=== PATIENT | female | born 1945 | race Two or more races ===

== ENCOUNTER 2018-10-08 23:06 | Emergency (ER) | payer MEDICARE, MEDICAID ==
[~2018-10-08] VITALS: Ht 149.9 cm; Wt 59.0 kg
--- NOTE | 2018-10-08 23:10 | NUR ---
pt is a/o x3 overall appearances fair has red little bumps all over her lower extremities pt scratching stated she been have this precaution maintained
[2018-10-08] MEDS ORDERED: ALPR0.25 PO (23:15)
[2018-10-08] MEDS ORDERED: DONE5TAB34 PO (23:15)
[2018-10-08] MEDS ORDERED: QUET25TA PO (23:15)
[2018-10-08] MEDS ORDERED: CLOP75TA33 PO (23:15)
[2018-10-08] MEDS ORDERED: FAMO-132 PO (23:15)
[2018-10-08] MEDS ORDERED: AMLO5TAB9 PO (23:15)
--- NOTE | 2018-10-08 23:18 | NUR ---
pt has been discharge awaitng for ambulance to take pt back to her facility discharge teaching given to pt and prescription teaching given also pt voiced her understanding
--- NOTE | 2018-10-08 23:19 | NUR ---
Called Ricky, ETA 1 hr Trip#[phone]
--- NOTE | 2018-10-09 00:56 | NUR ---
pt is being discharge back to facility by ambulance discharge teaching and prescription teaching given pt condition remains stable
[2018-10-09 00:59] VITALS: BP 132/70
== END 2018-10-09 01:00 | disposition home or self-care (01) ==
LOC: ER 23:10
DX: B86 Scabies (principal); Z79.01 Long term (current) use of anticoagulants; Z79.899 Other long term (current) drug therapy
CPT/HCPCS: A4663

== ENCOUNTER 2018-11-09 18:32 | Inpatient (IN) | payer MEDICARE, OTHER ==
[~2018-11-09] VITALS: Ht 157.5 cm; Wt 54.2 kg
[~2018-11-09 18:32] MED LIST: ALPR0.25 PO; AMLO5TAB9 PO; CLOP75TA33 PO; DONE5TAB34 PO; FAMO-132 PO; QUET25TA PO
[2018-11-09 19:20] LABS: BASOPHILS # (AUTO) 0.1 K/uL (0.0-8.0); BASOPHILS % (AUTO) 1.2 % (0.0-2.0); EOSINOPHILS # (AUTO) 0.1 K/uL (0.0-0.7); EOSINOPHILS % (AUTO) 2.9 % (0.0-7.0); HEMATOCRIT 33.7 % (31.2-41.9); HEMOGLOBIN 11.3 g/dL (10.9-14.3); LYMPHOCYTES # (AUTO) 1.9 K/uL (20.0-40.0); LYMPHOCYTES % (AUTO) 40.4 % (20.5-51.5); MEAN CORPUSCULAR HGB CONC 34 g/dL (32.3-35.6); MEAN CORPUSCULAR VOLUME 80.5 fL (75.5-95.3); MONOCYTES # (AUTO) 0.4 K/uL (2.0-10.0); NEUTROPHILS # (AUTO) 2.2 K/uL (1.8-8.9); NEUTROPHILS % (AUTO) 47.5 % (38.5-71.5); PLATELET COUNT (AUTO) 179 K/uL (179-408); RED BLOOD CELL COUNT(AUTO) 4.19 MIL/uL (3.63-4.92); WHITE BLOOD COUNT (AUTO) 4.6 K/uL (3.8-11.8)
[2018-11-09 19:29] LABS: CARBON DIOXIDE 28 mmol/L (21-32); CHLORIDE 109 mmol/L (98-107); CREATININE 0.9 mg/dL (0.6-1.3); GLUCOSE 117 mg/dL (74-106); POTASSIUM 3.4 mmol/L (3.5-5.1); UREA NITROGEN, BLOOD 17 mg/dL (7-18)
[2018-11-09 19:34] LABS: *BILIRUBIN,URIN NEGATIVE (NEGATIVE); *BLOOD, URINE NEGATIVE (NEGATIVE); *COLOR,URINE YELLOW (YELLOW); *KETONES,URINE NEGATIVE (NEGATIVE); *UROBILINOGEN,URINE 0.2 E.U./dl (NORMAL); LEUKOCYTE ESTERASE ,URINE 1+ (NEGATIVE); NITRITE, URINE NEGATIVE (NEGATIVE); UGLUCOSE NEGATIVE (NEGATIVE)
[2018-11-09 19:35] LABS: ALANINE AMINOTRANSFERASE 38 U/L (14-59); ALKALINE PHOSPHATASE 87 U/L (50-136); ASPARTATE AMINOTRANSFERASE 35 U/L (15-37); BILIRUBIN,DIRECT 0.1 mg/dL (0.0-0.2); BILIRUBIN,TOTAL 0.2 mg/dL (0.2-1.0); TOTAL PROTEIN, SERUM 6.7 g/dL (6.4-8.2)
[2018-11-09 19:41] LABS: *CLARITY,URINE SLIGHTLY HAZY (CLEAR)
[2018-11-09 19:43] LABS: RBC,URINE 0-3 /HPF (0-3)
[2018-11-09 19:44] LABS: MUCUS,URINE MODERATE /LPF (0-FEW); SQUAMOUS EPITHELIAL CELL,UR FEW /HPF (NONE SEEN)
[2018-11-09] MEDS ORDERED: IV NORMAL SALINE 1000 ML BAG IV ONE (19:45)
[2018-11-09] MEDS ORDERED: ACETAMINOPHEN 325 MG TABLET PO PRN (20:45)
[2018-11-09] MEDS ORDERED: CEFTRIAXONE 2 G in IV DEXTROSE 5% 100 ML IV ONE (20:45)
[2018-11-09] MEDS ORDERED: MAGNESIUM HYDROXIDE 30 ML LIQUID UDC PO PRN (20:45)
[2018-11-09] MEDS ORDERED: ONDANSETRON 4 MG/2 ML VIAL IV PRN (20:45)
[2018-11-09] MEDS ORDERED: HYDROCODONE/APAP 5-325MG TABLET PO PRN (20:45)
[2018-11-09] MEDS ORDERED: IV NS 1000 ML 1,000 ML IV PRN (20:45)
[2018-11-09] MEDS ORDERED: CEFTRIAXONE 1 G VIAL ONE (20:47)
[2018-11-09] MEDS ORDERED: HALOPERIDOL LACTATE 5 MG/1 ML VIAL ONE (21:14)
[2018-11-09] MEDS ORDERED: HALOPERIDOL LACTATE 5 MG/1 ML VIAL IM ONE (21:15)
[2018-11-09] MEDS ORDERED: LORAZEPAM 2 MG/1 ML VIAL IM ONE (21:30)
[2018-11-09] MEDS ORDERED: LORAZEPAM 2 MG/1 ML VIAL ONE (21:31)
[2018-11-09 22:05] VITALS: BP 131/62
[2018-11-10 06:35] VITALS: BP 149/62
[2018-11-10 10:34] VITALS: BP 131/64
[2018-11-10 16:33] VITALS: BP 139/73
[2018-11-10] MEDS: QUETIAPINE FUMARATE 25 MG TABLET PO SCH ×2 (16:47→16:52)
[2018-11-10] MEDS: FAMOTIDINE 20 MG TABLET PO SCH ×2 (16:47→16:51)
[2018-11-10] MEDS: DONEPEZIL 5 MG TABLET PO SCH (20:00)
[2018-11-10 20:19] VITALS: BP 159/82
[2018-11-10] MEDS ORDERED: CEFTRIAXONE 1 G in IV DEXTROSE 5% 50 ML IV SCH (21:00)
[2018-11-10] MEDS: OLANZAPINE 10 MG VIAL IM ONE ×2 (21:45→22:02)
[2018-11-11] MEDS: FAMOTIDINE 20 MG TABLET PO SCH ×2 (08:54→16:34)
[2018-11-11 08:58] VITALS: BP 155/78
[2018-11-11] MEDS ORDERED: AMLODIPINE 5 MG TABLET PO SCH (09:00)
[2018-11-11] MEDS ORDERED: CLOPIDOGREL 75 MG TABLET PO SCH (09:00)
[2018-11-11] MEDS: QUETIAPINE FUMARATE 25 MG TABLET PO SCH ×2 (09:01→16:34)
[2018-11-11] MEDS ORDERED: MEMANTINE HCL 5 MG TABLET PO SCH (11:45)
[2018-11-11 12:00] VITALS: BP 136/73
[2018-11-11 12:27] LABS: BASOPHILS % (AUTO) 0.9 % (0.0-2.0); EOSINOPHILS # (AUTO) 0.1 K/uL (0.0-0.7); MONOCYTES # (AUTO) 0.3 K/uL (2.0-10.0); WHITE BLOOD COUNT (AUTO) 4.4 K/uL (3.8-11.8)
[2018-11-11 12:31] LABS: CARBON DIOXIDE 27 mmol/L (21-32); CHLORIDE 103 mmol/L (98-107); CREATININE 0.8 mg/dL (0.6-1.3); GLUCOSE 115 mg/dL (74-106); MAGNESIUM 2.2 mg/dL (1.8-2.4); PHOSPHOROUS 3.9 mg/dL (2.5-4.9); UREA NITROGEN, BLOOD 9 mg/dL (7-18)
[2018-11-11 12:36] LABS: EOSINOPHILS % (AUTO) 1.5 % (0.0-7.0); LYMPHOCYTES # (AUTO) 1.6 K/uL (20.0-40.0); LYMPHOCYTES % (AUTO) 36.2 % (20.5-51.5); MEAN CORPUSCULAR HEMOGLOBIN 26.3 uug (24.7-32.8); MEAN CORPUSCULAR HGB CONC 33 g/dL (32.3-35.6); MEAN CORPUSCULAR VOLUME 80.4 fL (75.5-95.3); MONOCYTES % (AUTO) 7.2 % (0.0-11.0); NEUTROPHILS # (AUTO) 2.4 K/uL (1.8-8.9); NEUTROPHILS % (AUTO) 54.2 % (38.5-71.5); PLATELET COUNT (AUTO) 208 K/uL (179-408); RED BLOOD CELL COUNT(AUTO) 4.96 MIL/uL (3.63-4.92)
[2018-11-11 12:37] LABS: HEMATOCRIT 39.9 % (31.2-41.9); HEMOGLOBIN 13.1 g/dL (10.9-14.3)
[2018-11-11 16:00] VITALS: BP 149/92
[2018-11-11] MEDS ORDERED: HALOPERIDOL LACTATE 5 MG/1 ML VIAL IM PRN (17:30)
[2018-11-11] MEDS: DONEPEZIL 5 MG TABLET PO SCH (18:59)
[2018-11-11] MEDS ORDERED: risperiDONE 0.5 MG TABLET PO SCH (21:00)
[2018-11-12] MEDS ORDERED: risperiDONE 0.5 MG TABLET PO SCH (14:00)
[2018-11-12] MEDS ORDERED: DIVALPROEX 125 MG TABLET.DR PO SCH (21:00)
== END 2018-11-11 20:30 | DRG 689 ==
LOC: ER 18:32 → MEDSURG3 20:58
PROVIDERS: ADMIT Nurse Practitioner Acute Care; ATTEND Nurse Practitioner Acute Care
DX: N39.0 Urinary tract infection, site not specified (principal); G93.41 Metabolic encephalopathy; E87.0 Hyperosmolality and hypernatremia; G30.9 Alzheimer's disease, unspecified; F02.80 Dementia in other diseases classified elsewhere, unspecified severity, without behavioral disturbance, psychotic disturbance, mood disturbance, and anxiety; R62.7 Adult failure to thrive; Z87.442 Personal history of urinary calculi; E87.6 Hypokalemia; F29 Unspecified psychosis not due to a substance or known physiological condition; R40.2362 Coma scale, best motor response, obeys commands, at arrival to emergency department; R40.2142 Coma scale, eyes open, spontaneous, at arrival to emergency department; R40.2242 Coma scale, best verbal response, confused conversation, at arrival to emergency department; G20 Parkinson's disease; Z79.02 Long term (current) use of antithrombotics/antiplatelets; Z79.899 Other long term (current) drug therapy; R21 Rash and other nonspecific skin eruption
CPT/HCPCS: 36415; 70030-TC; 71045; 83735; 84100; 85025; 87086; 93005; A4663; C1758; G0378; J0696; J1630; J2060; J2358; J7030; J7040; J7060

== ENCOUNTER 2018-11-11 20:50 | Inpatient (IN) | payer MEDICARE, OTHER ==
[~2018-11-11] VITALS: Ht 149.9 cm; Wt 56.7 kg
[~2018-11-11 20:50] MED LIST changes: -ALPR0.25 PO
[2018-11-11] MEDS ORDERED: MAGNESIUM HYDROXIDE 30 ML LIQUID UDC PO PRN (21:45)
[2018-11-11] MEDS ORDERED: MAG HYDROX/AL HYDROX/SIMETH 30 ML LIQUID UDC PO PRN (21:45)
[2018-11-11 22:08] VITALS: BP 150/84
[2018-11-11] MEDS: TEMAZEPAM 7.5 MG CAPSULE PO PRN (22:35)
[2018-11-11] MEDS: MEMANTINE HCL 5 MG TABLET PO SCH (23:00)
[2018-11-11] MEDS ORDERED: DONEPEZIL 5 MG TABLET PO SCH (23:00)
[2018-11-12 07:30] VITALS: BP 147/78
[2018-11-12] MEDS: MEMANTINE HCL 5 MG TABLET PO SCH ×2 (08:33→20:01)
[2018-11-12] MEDS: AMLODIPINE 5 MG TABLET PO SCH (08:33)
[2018-11-12] MEDS: CLOPIDOGREL 75 MG TABLET PO SCH (08:34)
[2018-11-12] MEDS: FAMOTIDINE 20 MG TABLET PO SCH ×2 (08:34→17:31)
[2018-11-12] MEDS: risperiDONE 0.5 MG TABLET PO SCH ×2 (16:05→20:01)
[2018-11-12 16:21] VITALS: BP 128/65
[2018-11-12] MEDS: BENZTROPINE MESYLATE 0.5 MG TABLET PO SCH (17:31)
[2018-11-12 19:49] VITALS: BP 145/64
[2018-11-12] MEDS ORDERED: risperiDONE 0.5 MG TABLET PO SCH (21:00)
[2018-11-12] MEDS ORDERED: DIVALPROEX 125 MG TABLET.DR PO SCH (21:00)
[2018-11-13 07:30] VITALS: BP 104/41
[2018-11-13] MEDS: CLOPIDOGREL 75 MG TABLET PO SCH (08:55)
[2018-11-13] MEDS: risperiDONE 0.5 MG TABLET PO SCH ×2 (08:55→20:12)
[2018-11-13] MEDS: MEMANTINE HCL 5 MG TABLET PO SCH ×2 (08:55→20:12)
[2018-11-13] MEDS: FAMOTIDINE 20 MG TABLET PO SCH ×2 (08:55→17:15)
[2018-11-13] MEDS: AMLODIPINE 5 MG TABLET PO SCH (08:56)
[2018-11-13 15:15] VITALS: BP 157/74
[2018-11-13] MEDS: BENZTROPINE MESYLATE 0.5 MG TABLET PO SCH (17:15)
[2018-11-13 20:12] VITALS: BP 160/68
[2018-11-13] MEDS: DIVALPROEX 250 MG TABLET.DR PO SCH (20:12)
[2018-11-13] MEDS ORDERED: DIVALPROEX 125 MG TABLET.DR PO SCH (21:00)
[2018-11-14 07:30] VITALS: BP 114/67
[2018-11-14] MEDS: risperiDONE 0.5 MG TABLET PO SCH (08:43)
[2018-11-14] MEDS: MEMANTINE HCL 5 MG TABLET PO SCH ×2 (08:43→21:00)
[2018-11-14] MEDS: CLOPIDOGREL 75 MG TABLET PO SCH (08:43)
[2018-11-14] MEDS: FAMOTIDINE 20 MG TABLET PO SCH ×2 (08:44→17:47)
[2018-11-14] MEDS: AMLODIPINE 5 MG TABLET PO SCH (10:30)
[2018-11-14 15:24] VITALS: BP 152/97
[2018-11-14] MEDS: BENZTROPINE MESYLATE 0.5 MG TABLET PO SCH (17:47)
[2018-11-14] MEDS: LORAZEPAM 1 MG TABLET PO PRN (18:07)
[2018-11-14 20:00] VITALS: BP 183/74
[2018-11-14] MEDS ORDERED: OLANZAPINE 10 MG VIAL IM ONE (20:00)
[2018-11-14] MEDS: risperiDONE 1 MG TABLET PO SCH (20:13)
[2018-11-14] MEDS: DIVALPROEX 250 MG TABLET.DR PO SCH (21:00)
[2018-11-15 07:30] VITALS: BP 149/62
[2018-11-15] MEDS: AMLODIPINE 5 MG TABLET PO SCH (08:24)
[2018-11-15] MEDS: CLOPIDOGREL 75 MG TABLET PO SCH (08:24)
[2018-11-15] MEDS: FAMOTIDINE 20 MG TABLET PO SCH ×2 (08:25→16:22)
[2018-11-15] MEDS: risperiDONE 0.5 MG TABLET PO SCH (08:25)
[2018-11-15] MEDS: MEMANTINE HCL 5 MG TABLET PO SCH ×2 (08:25→20:01)
[2018-11-15] MEDS: LORAZEPAM 1 MG TABLET PO PRN ×2 (14:13→21:14)
[2018-11-15 16:07] VITALS: BP 142/72
[2018-11-15] MEDS: BENZTROPINE MESYLATE 0.5 MG TABLET PO SCH (16:21)
[2018-11-15] MEDS: ACETAMINOPHEN 325 MG TABLET PO PRN (20:00)
[2018-11-15] MEDS: risperiDONE 1 MG TABLET PO SCH (20:00)
[2018-11-15] MEDS: DIVALPROEX 250 MG TABLET.DR PO SCH (20:01)
[2018-11-15 20:10] VITALS: BP 132/69
[2018-11-16] MEDS: CLOPIDOGREL 75 MG TABLET PO SCH (08:21)
[2018-11-16] MEDS: MEMANTINE HCL 5 MG TABLET PO SCH ×2 (08:21→20:10)
[2018-11-16] MEDS: FAMOTIDINE 20 MG TABLET PO SCH ×2 (08:21→16:01)
[2018-11-16] MEDS: LORAZEPAM 1 MG TABLET PO PRN ×3 (08:22→22:01)
[2018-11-16] MEDS: risperiDONE 0.5 MG TABLET PO SCH (08:22)
[2018-11-16 08:23] VITALS: BP 126/73
[2018-11-16] MEDS: AMLODIPINE 5 MG TABLET PO SCH (08:46)
[2018-11-16 15:20] VITALS: BP 136/83
[2018-11-16] MEDS: BENZTROPINE MESYLATE 0.5 MG TABLET PO SCH (16:01)
[2018-11-16] MEDS: DIVALPROEX 250 MG TABLET.DR PO SCH (20:09)
[2018-11-16] MEDS: risperiDONE 1 MG TABLET PO SCH (20:09)
[2018-11-16 20:42] VITALS: BP 145/86
[2018-11-16] MEDS: ACETAMINOPHEN 325 MG TABLET PO PRN (22:01)
[2018-11-16] MEDS: TEMAZEPAM 7.5 MG CAPSULE PO PRN (23:26)
[2018-11-17 07:29] LABS: BASOPHILS # (AUTO) 0.1 K/uL (0.0-8.0); BASOPHILS % (AUTO) 1.4 % (0.0-2.0); EOSINOPHILS # (AUTO) 0.2 K/uL (0.0-0.7); EOSINOPHILS % (AUTO) 3.5 % (0.0-7.0); HEMATOCRIT 37.4 % (31.2-41.9); HEMOGLOBIN 12.3 g/dL (10.9-14.3); LYMPHOCYTES # (AUTO) 2.2 K/uL (20.0-40.0); LYMPHOCYTES % (AUTO) 46.9 % (20.5-51.5); MEAN CORPUSCULAR HEMOGLOBIN 26.8 uug (24.7-32.8); MEAN CORPUSCULAR HGB CONC 33 g/dL (32.3-35.6); MEAN CORPUSCULAR VOLUME 81.3 fL (75.5-95.3); MONOCYTES # (AUTO) 0.6 K/uL (2.0-10.0); MONOCYTES % (AUTO) 12.6 % (0.0-11.0); NEUTROPHILS # (AUTO) 1.7 K/uL (1.8-8.9); NEUTROPHILS % (AUTO) 35.6 % (38.5-71.5); PLATELET COUNT (AUTO) 157 K/uL (179-408); WHITE BLOOD COUNT (AUTO) 4.7 K/uL (3.8-11.8)
[2018-11-17 07:30] VITALS: BP 168/81
[2018-11-17 07:35] LABS: CARBON DIOXIDE 30 mmol/L (21-32); CHLORIDE 108 mmol/L (98-107); CREATININE 0.8 mg/dL (0.6-1.3); GLUCOSE 79 mg/dL (74-106); POTASSIUM 3.8 mmol/L (3.5-5.1); UREA NITROGEN, BLOOD 21 mg/dL (7-18)
[2018-11-17] MEDS: MEMANTINE HCL 5 MG TABLET PO SCH ×2 (12:22→20:00)
[2018-11-17] MEDS: risperiDONE 0.5 MG TABLET PO SCH (12:22)
[2018-11-17] MEDS: CLOPIDOGREL 75 MG TABLET PO SCH (12:23)
[2018-11-17] MEDS: AMLODIPINE 5 MG TABLET PO SCH (12:23)
[2018-11-17] MEDS: FAMOTIDINE 20 MG TABLET PO SCH ×2 (12:24→17:13)
[2018-11-17 16:00] VITALS: BP 138/70
[2018-11-17] MEDS: BENZTROPINE MESYLATE 0.5 MG TABLET PO SCH (17:13)
[2018-11-17 19:30] VITALS: BP 142/80
[2018-11-17] MEDS: risperiDONE 1 MG TABLET PO SCH (20:00)
[2018-11-17] MEDS: DIVALPROEX 500 MG TABLET.DR PO SCH (20:00)
[2018-11-17] MEDS ORDERED: DIVALPROEX 250 MG TABLET.DR PO SCH ×2 (21:00)
[2018-11-17] MEDS: LORAZEPAM 1 MG TABLET PO PRN (21:38)
[2018-11-17] MEDS: ACETAMINOPHEN 325 MG TABLET PO PRN (23:23)
[2018-11-17] MEDS: TEMAZEPAM 7.5 MG CAPSULE PO PRN (23:23)
[2018-11-18 07:30] VITALS: BP 134/75
[2018-11-18] MEDS: FAMOTIDINE 20 MG TABLET PO SCH ×2 (08:44→16:52)
[2018-11-18] MEDS: CLOPIDOGREL 75 MG TABLET PO SCH (08:45)
[2018-11-18] MEDS: MEMANTINE HCL 5 MG TABLET PO SCH ×2 (08:45→20:51)
[2018-11-18] MEDS: AMLODIPINE 5 MG TABLET PO SCH (08:45)
[2018-11-18] MEDS: risperiDONE 0.5 MG TABLET PO SCH (08:45)
[2018-11-18 15:51] VITALS: BP 130/65
[2018-11-18] MEDS: BENZTROPINE MESYLATE 0.5 MG TABLET PO SCH (16:52)
[2018-11-18 20:48] VITALS: BP 136/81
[2018-11-18] MEDS: risperiDONE 1 MG TABLET PO SCH (20:51)
[2018-11-18] MEDS: DIVALPROEX 500 MG TABLET.DR PO SCH (20:51)
[2018-11-18] MEDS: LORAZEPAM 1 MG TABLET PO PRN (22:02)
[2018-11-19 06:40] LABS: BASOPHILS % (AUTO) 1.2 % (0.0-2.0); EOSINOPHILS # (AUTO) 0.2 K/uL (0.0-0.7); EOSINOPHILS % (AUTO) 4.5 % (0.0-7.0); HEMATOCRIT 34.3 % (31.2-41.9); HEMOGLOBIN 11.5 g/dL (10.9-14.3); LYMPHOCYTES # (AUTO) 1.7 K/uL (20.0-40.0); LYMPHOCYTES % (AUTO) 44.8 % (20.5-51.5); MEAN CORPUSCULAR HEMOGLOBIN 27.2 uug (24.7-32.8); MEAN CORPUSCULAR HGB CONC 34 g/dL (32.3-35.6); MEAN CORPUSCULAR VOLUME 80.9 fL (75.5-95.3); MONOCYTES # (AUTO) 0.4 K/uL (2.0-10.0); MONOCYTES % (AUTO) 10.4 % (0.0-11.0); NEUTROPHILS # (AUTO) 1.5 K/uL (1.8-8.9); NEUTROPHILS % (AUTO) 39.1 % (38.5-71.5); PLATELET COUNT (AUTO) 161 K/uL (179-408); RED BLOOD CELL COUNT(AUTO) 4.24 MIL/uL (3.63-4.92); WHITE BLOOD COUNT (AUTO) 3.7 K/uL (3.8-11.8)
[2018-11-19 06:55] LABS: ALANINE AMINOTRANSFERASE 32 U/L (14-59); ALKALINE PHOSPHATASE 80 U/L (50-136); ASPARTATE AMINOTRANSFERASE 28 U/L (15-37); BILIRUBIN,TOTAL 0.4 mg/dL (0.2-1.0); CARBON DIOXIDE 30 mmol/L (21-32); CHLORIDE 109 mmol/L (98-107); CREATININE 0.8 mg/dL (0.6-1.3); GLUCOSE 91 mg/dL (74-106); POTASSIUM 3.5 mmol/L (3.5-5.1); TOTAL PROTEIN, SERUM 6.5 g/dL (6.4-8.2); UREA NITROGEN, BLOOD 16 mg/dL (7-18); VALPROIC ACID 66 ug/mL (50-100)
[2018-11-19 08:00] VITALS: BP 147/66
[2018-11-19] MEDS: risperiDONE 0.5 MG TABLET PO SCH (08:21)
[2018-11-19] MEDS: CLOPIDOGREL 75 MG TABLET PO SCH (08:21)
[2018-11-19] MEDS: MEMANTINE HCL 5 MG TABLET PO SCH ×2 (08:22→20:04)
[2018-11-19] MEDS: FAMOTIDINE 20 MG TABLET PO SCH ×2 (08:22→16:36)
[2018-11-19] MEDS: AMLODIPINE 5 MG TABLET PO SCH (08:22)
[2018-11-19] MEDS: LORAZEPAM 1 MG TABLET PO PRN (11:53)
[2018-11-19 16:00] VITALS: BP 133/70
[2018-11-19] MEDS: BENZTROPINE MESYLATE 0.5 MG TABLET PO SCH (16:36)
[2018-11-19] MEDS: DIVALPROEX 500 MG TABLET.DR PO SCH (20:03)
[2018-11-19] MEDS: risperiDONE 1 MG TABLET PO SCH (20:04)
[2018-11-19 20:31] VITALS: BP 134/79
[2018-11-19] MEDS: TEMAZEPAM 7.5 MG CAPSULE PO PRN (21:46)
[2018-11-20 07:30] VITALS: BP 138/75
[2018-11-20] MEDS: MEMANTINE HCL 5 MG TABLET PO SCH ×2 (08:03→20:26)
[2018-11-20] MEDS: FAMOTIDINE 20 MG TABLET PO SCH ×2 (08:03→16:38)
[2018-11-20] MEDS: risperiDONE 0.5 MG TABLET PO SCH (08:03)
[2018-11-20] MEDS: CLOPIDOGREL 75 MG TABLET PO SCH (08:03)
[2018-11-20] MEDS: AMLODIPINE 5 MG TABLET PO SCH (08:12)
[2018-11-20 16:00] VITALS: BP 127/73
[2018-11-20] MEDS: BENZTROPINE MESYLATE 0.5 MG TABLET PO SCH (16:38)
[2018-11-20 20:00] VITALS: BP 135/81
[2018-11-20] MEDS: DIVALPROEX 500 MG TABLET.DR PO SCH (20:25)
[2018-11-20] MEDS: risperiDONE 1 MG TABLET PO SCH (20:26)
[2018-11-21] MEDS: TEMAZEPAM 7.5 MG CAPSULE PO PRN (00:50)
[2018-11-21 07:30] VITALS: BP 141/77
[2018-11-21] MEDS: risperiDONE 0.5 MG TABLET PO SCH (08:23)
[2018-11-21] MEDS: MEMANTINE HCL 5 MG TABLET PO SCH ×2 (08:24→20:14)
[2018-11-21] MEDS: AMLODIPINE 5 MG TABLET PO SCH (08:24)
[2018-11-21] MEDS: FAMOTIDINE 20 MG TABLET PO SCH ×2 (08:24→16:21)
[2018-11-21] MEDS: LORAZEPAM 1 MG TABLET PO PRN ×2 (08:24→21:03)
[2018-11-21] MEDS: CLOPIDOGREL 75 MG TABLET PO SCH (08:24)
[2018-11-21] MEDS ORDERED: BENZTROPINE MESYLATE 0.5 MG TABLET PO PRN (13:45)
[2018-11-21 15:18] VITALS: BP 143/81
[2018-11-21 20:00] VITALS: BP 171/94
[2018-11-21] MEDS: DIVALPROEX 500 MG TABLET.DR PO SCH (20:13)
[2018-11-21] MEDS: risperiDONE 1 MG TABLET PO SCH (20:14)
[2018-11-21 21:30] VITALS: BP 152/83
[2018-11-22 07:12] LABS: BASOPHILS # (AUTO) 0.1 K/uL (0.0-8.0); BASOPHILS % (AUTO) 1.4 % (0.0-2.0); EOSINOPHILS # (AUTO) 0.2 K/uL (0.0-0.7); EOSINOPHILS % (AUTO) 3.7 % (0.0-7.0); HEMATOCRIT 34.1 % (31.2-41.9); HEMOGLOBIN 11.7 g/dL (10.9-14.3); LYMPHOCYTES # (AUTO) 1.8 K/uL (20.0-40.0); LYMPHOCYTES % (AUTO) 44.2 % (20.5-51.5); MEAN CORPUSCULAR HEMOGLOBIN 27.7 uug (24.7-32.8); MEAN CORPUSCULAR HGB CONC 34 g/dL (32.3-35.6); MEAN CORPUSCULAR VOLUME 80.5 fL (75.5-95.3); MONOCYTES # (AUTO) 0.5 K/uL (2.0-10.0); MONOCYTES % (AUTO) 11.3 % (0.0-11.0); NEUTROPHILS # (AUTO) 1.6 K/uL (1.8-8.9); NEUTROPHILS % (AUTO) 39.4 % (38.5-71.5); PLATELET COUNT (AUTO) 152 K/uL (179-408); RED BLOOD CELL COUNT(AUTO) 4.23 MIL/uL (3.63-4.92)
[2018-11-22 07:20] LABS: ALANINE AMINOTRANSFERASE 48 U/L (14-59); ALKALINE PHOSPHATASE 82 U/L (50-136); ASPARTATE AMINOTRANSFERASE 34 U/L (15-37); BILIRUBIN,TOTAL 0.3 mg/dL (0.2-1.0); CARBON DIOXIDE 29 mmol/L (21-32); CHLORIDE 109 mmol/L (98-107); CREATININE 0.9 mg/dL (0.6-1.3); GLUCOSE 92 mg/dL (74-106); POTASSIUM 3.8 mmol/L (3.5-5.1); TOTAL PROTEIN, SERUM 6.7 g/dL (6.4-8.2); UREA NITROGEN, BLOOD 17 mg/dL (7-18); VALPROIC ACID 78 ug/mL (50-100)
[2018-11-22 07:30] VITALS: BP 122/60
[2018-11-22] MEDS: FAMOTIDINE 20 MG TABLET PO SCH (08:15)
[2018-11-22] MEDS: MEMANTINE HCL 5 MG TABLET PO SCH (08:15)
[2018-11-22] MEDS: LORAZEPAM 1 MG TABLET PO PRN (08:15)
[2018-11-22 08:16] VITALS: BP 122/80
[2018-11-22] MEDS: CLOPIDOGREL 75 MG TABLET PO SCH (08:16)
[2018-11-22] MEDS: AMLODIPINE 5 MG TABLET PO SCH (08:16)
[2018-11-22] MEDS: risperiDONE 0.5 MG TABLET PO SCH (08:16)
== END 2018-11-22 15:00 | DRG 885 ==
LOC: GPS 20:50
PROVIDERS: ADMIT Psychiatry & Neurology Psychosomatic Medicine; ATTEND Nurse Practitioner Acute Care
DX: F25.9 Schizoaffective disorder, unspecified (principal); F01.51 Vascular dementia, unspecified severity, with behavioral disturbance; N17.0 Acute kidney failure with tubular necrosis; G93.41 Metabolic encephalopathy; R62.7 Adult failure to thrive; Z68.24 Body mass index [BMI] 24.0-24.9, adult; E87.6 Hypokalemia; F14.11 Cocaine abuse, in remission; F11.11 Opioid abuse, in remission; F39 Unspecified mood [affective] disorder
CPT/HCPCS: 36415; 80164; 85025; J2358; J3490